=== PATIENT | male | born 1990 | race Caucasian/White ===

== ENCOUNTER → 2023-10-24 | Outpatient (CLI) | payer BC ==
[~2023-10-24] MED LIST: CLARITIN; CLARITIN D TAB1 TAB PO; NEXIUM PO; NO HOME MEDICATIONS
[2023-10-25 00:56] LABS: BAND 26 % (0-10); EOSINOPHIL 10 % (0-4); LYMPHOCYTE 19 % (20.0-51.0); NEUTROPHILS 27 % (42.0-75.2)
[2023-10-25 00:57] LABS: PLATELET ESTIMATE NORMAL (NORMAL)
== END ==
LOC: ZCOL.LAB 23:57
PROVIDERS: Family Medicine
DX: R10.9 Unspecified abdominal pain (principal)

== ENCOUNTER 2024-05-24 12:26 | Emergency (ER) | payer OTHER ==
[~2024-05-24] VITALS: Ht 190.5 cm; Wt 103.6 kg
[2024-05-24 12:32] VITALS: TEMP 97.6
[2024-05-24] MEDS ORDERED: Morphine 10 MG/ML VIAL IM ONE (13:15)
[2024-05-24] MEDS ORDERED: diazePAM 5 MG TAB PO ONE (13:15)
[2024-05-24] MEDS ORDERED: NORCO 325 MG-51 TAB PO (14:18)
[2024-05-24] MEDS ORDERED: CEPHALEXIN500 M1 PO (14:18)
[2024-05-24 14:43] VITALS: BP 142/97; PULSE 94
== END 2024-05-24 14:43 | disposition home or self-care (01) ==
LOC: COL.ER 12:26
DX: L02.31 Cutaneous abscess of buttock (principal)
CPT/HCPCS: J2270